=== PATIENT | male | born 1970 ===

== ENCOUNTER 2023-07-04 17:21 | Emergency (ER) | payer SELFPAY ==
[2023-07-04] MEDS ORDERED: Sodium Chloride 0.9% 10 ML Syringe FLUSH PRN (17:35)
[2023-07-04 18:09] LABS: BASOPHILS PERCENT AUTO 0.2 % (0.0-1.0); EOSINOPHILS PERCENT AUTO 0.7 % (1.0-3.0); HEMATOCRIT 43.9 % (40.0-54.0); HEMOGLOBIN 14.7 g/dL (14.0-18.0); LYMPHOCYTES PERCENT AUTO 32.4 % (20.5-50.1); MEAN CORPUSCULAR HEMOGLOBIN 29.2 pg (27.0-34.0); MEAN CORPUSCULAR HGB CONC 33.5 g/dL (33.0-35.0); MEAN CORPUSCULAR VOLUME 87.3 fL (80-100); MONOCYTES PERCENT AUTO 4.5 % (2-8); NEUTROPHILS PERCENT AUTO 62.2 % (42.2-75.2); PLATELET COUNT,PLT 182 10^3/uL (150-450); RED BLOOD CELL COUNT 5.03 10^6/uL (4.6-6.2); WHITE BLOOD CELL COUNT,WBC 8.6 10^3/uL (5.0-10.0)
[2023-07-04 18:10] LABS: APPEARANCE,URINE CLEAR (CLEAR); BILIRUBIN,URINE NEGATIVE (NEGATIVE); COLOR,URINE YELLOW (YELLOW); GLUCOSE,URINE NEGATIVE (NEGATIVE); KETONES,URINE NEGATIVE (NEGATIVE); LEUKOCYTE ESTERASE,URINE TRACE (NEGATIVE); NITRITE,URINE NEGATIVE (NEGATIVE); OCCULT BLOOD,URINE TRACE-INTACT (NEGATIVE); PROTEIN,URINE NEGATIVE (NEGATIVE); UROBILINOGEN,URINE 0.2 mg/dL (0.2-1.0)
[2023-07-04 18:16] LABS: AMPHETAMINES,URINE NEGATIVE (NEGATIVE); BARBITURATES,URINE NEGATIVE (NEGATIVE); BENZODIAZEPINE,URINE NEGATIVE (NEGATIVE); MDMA (ECSTASY), URINE NEGATIVE (NEGATIVE); METHADONE,URINE NEGATIVE (NEGATIVE); METHAMPHETAMINES,URINE NEGATIVE (NEGATIVE); OPIATES,URINE NEGATIVE (NEGATIVE); OXYCODONE,URINE NEGATIVE (NEGATIVE); PHENCYCLIDINE,URINE NEGATIVE (NEGATIVE); TCA,URINE NEGATIVE (NEGATIVE)
[2023-07-04 18:19] LABS: BACTERIA,URINE MODERATE /HPF (0-FEW/HPF); EPITHELIAL CELLS,URINE NOT SEEN /HPF (NOT SEEN); RBC,URINE 0-5 /HPF (0-5)
[2023-07-04] MEDS ORDERED: cefTRIAXone 2 GM Vial IVPUSH ONE (18:22)
[2023-07-04] MEDS ORDERED: Sodium Chloride 0.9% 1,000 ML IV ONE (18:23)
[2023-07-04] MEDS ORDERED: Thiamine 100 MG in Sodium Chloride 0.9% 100 ML IV ONE (18:23)
[2023-07-04 18:40] LABS: A/G RATIO 0.9; ALANINE AMINOTRANSFERASE,ALT 23 U/L (16-63); ALBUMIN 3.4 g/dL (3.4-5.0); ALKALINE PHOSPHATASE 125 U/L (46-116); AMYLASE 89 U/L (25-115); ANION GAP 16.2 mEq/L (7-13); ASPARTATE AMNIOTRANSFERASE,AST 25 U/L (15-37); BILIRUBIN TOTAL 0.3 mg/dL (0.2-1.0); BLOOD UREA NITROGEN,BUN 9 mg/dL (7-18); BUN/CREATININE RATIO 11.5 (No establ ref range); CARBON DIOXIDE,CO2 23 mmol/L (21-32); CHLORIDE,CL 108 mmol/L (98-107); CREATININE 0.78 mg/dL (0.70-1.30); EST CRCL DRUG DOSING (CG) 105.96 mL/min; GLUCOSE RANDOM 136 mg/dL (70-99); LIPASE 45 U/L (16-77); POTASSIUM,K 3.2 mmol/L (3.5-5.1); PROTEIN TOTAL,TP 7.4 g/dL (6.4-8.2); SODIUM,NA 144 mmol/L (136-145)
[2023-07-04 18:41] LABS: ESTIMATED GFR 107 mL/min (>=60); ETHANOL BLOOD MEDICAL 431 mg/dL (0); INR 0.9 (0.9-1.2); LACTIC ACID 2.7 mmol/L (0.4-2.0); PROTHROMBIN TIME 9.3 SEC (9.0-12.0)
[2023-07-04] MEDS ORDERED: NS with KCl 40mEq 1,000 ML IV SCH (19:00)
== END 2023-07-04 19:57 | disposition home or self-care (01) ==
LOC: DL.ED 17:21
DX: F10.929 Alcohol use, unspecified with intoxication, unspecified (principal)
CPT/HCPCS: 36415; 70450; 80053; 80305-QW; 80307; 81001; 82140; 82150; 83605; 83690; 84145; 84484; 85025; 85610; 85730; 87086; 87088; 87186; 93005; 93010; 96365; 96375; 99284; 99285-25; J0696; J3411; J3480; J3490; J7030